=== PATIENT | female | born 1985 | race Caucasian/White ===

== ENCOUNTER 2020-12-10 13:28 | Emergency (ER) | payer OTHER ==
[2020-12-10 14:09] VITALS: BP 105/60; PULSE 79; TEMP 98.9; BMI 20.9
[2020-12-10 14:42] LABS: BASO % 0.4 % (0-2.0); EOS % 0.2 % (0-4.5); HEMATOCRIT 36.5 % (32.4-45.2); LYMPH % 16.5 % (8-40); MCH 25.9 pg (25.7-33.7); MEAN CELL VOLUME 78.6 fl (80-96); MEAN PLT VOLUME 9.4 fl (7.5-11.1); MONO % 7.1 % (3.8-10.2); NEUT % 75.8 % (42.8-82.8); PLATELET COUNT 192 K/MM3 (134-434); RBC 4.65 M/mm3 (3.60-5.2); RDW 20.7 % (11.6-15.6); WHITE BLOOD COUNT 7.1 K/mm3 (4.0-10.0)
[2020-12-10 14:59] LABS: CHLORIDE 108 mmol/L (98-107); SODIUM 138 mmol/L (136-145)
[2020-12-10 15:02] LABS: ALBUMIN 3.8 g/dl (3.4-5.0); ANION GAP 4 MMOL/L (8-16); BLOOD UREA NITROGEN 13.9 mg/dL (7-18); CALCIUM 8.5 mg/dL (8.5-10.1); CO2 26 mmol/L (21-32); GLUCOSE,RANDOM 87 mg/dL (74-106)
[2020-12-10 15:05] LABS: CREATININE 0.5 mg/dL (0.55-1.3); SGOT/AST 15 U/L (15-37); SGPT/ALT 16 U/L (13-61)
[2020-12-10 15:07] LABS: BILIRUBIN,TOTAL 0.7 mg/dL (0.2-1); TOT PROT 7.1 g/dl (6.4-8.2)
[2020-12-10 15:08] LABS: ALK PHOS 66 U/L (45-117)
[2020-12-10 18:03] LABS: ANISOCYTOSIS 1+; MACROCYTOSIS 0; OVALOCYTE 2+; PLATELET ESTIMATE NORMAL
== END 2020-12-10 15:39 | disposition home or self-care (01) ==
LOC: JER 13:28
DX: R07.89 Other chest pain (principal)
CPT/HCPCS: 36415; 71046-TC-FY; 80053; 82550; 84484; 85025; 93005; 93010; 99285-25

== ENCOUNTER 2023-06-09 11:55 | Day surgery (SDC) | payer OTHER ==
[2023-05-30 15:12] VITALS: BMI 21.2
[2023-06-09 12:48] VITALS: RESP 18
[2023-06-09] MEDS ORDERED: PROPOFOL 20 ML ONE (13:46)
[2023-06-09 14:26] VITALS: TEMP 98.1
[2023-06-09 14:53] VITALS: BP 96/44; PULSE 66
== END 2023-06-09 16:04 | disposition home or self-care (01) ==
LOC: FASU-ENDO 11:55
PROVIDERS: ATTEND Internal Medicine Gastroenterology
PROC: 0DJD8ZZ Inspection of Lower Intestinal Tract, Via Natural or Artificial Opening Endoscopic (ICD-10-PCS; principal; 2023-06-09 13:57)
DX: K92.1 Melena (principal); K64.1 Second degree hemorrhoids
CPT/HCPCS: 81025

== ENCOUNTER 2024-05-15 04:51 | Day surgery (SDC) | payer OTHER ==
[2024-05-15 12:21] VITALS: BMI 21.9
[2024-05-15 13:43] VITALS: TEMP 98.1
[2024-05-15 13:57] VITALS: BP 90/59; PULSE 56; RESP 20
== END 2024-05-15 14:00 | disposition home or self-care (01) ==
LOC: JASU-ENDO 04:51
PROVIDERS: ATTEND Internal Medicine Gastroenterology
PROC: 0DB68ZX Excision of Stomach, Via Natural or Artificial Opening Endoscopic, Diagnostic (ICD-10-PCS; 2024-05-15)
PROC: 0DB48ZX Excision of Esophagogastric Junction, Via Natural or Artificial Opening Endoscopic, Diagnostic (ICD-10-PCS; 2024-05-15)
PROC: 0DB98ZX Excision of Duodenum, Via Natural or Artificial Opening Endoscopic, Diagnostic (ICD-10-PCS; principal; 2024-05-15 13:01)
DX: K21.00 Gastro-esophageal reflux disease with esophagitis, without bleeding (principal)
CPT/HCPCS: 81025; 88305-TC; 88342-TC